=== PATIENT | male | born 1950 | race Caucasian/White ===

== ENCOUNTER 2018-09-09 13:36 | Emergency (ER) | payer MEDICARE ==
--- NOTE | 2018-09-09 14:16 | ED ---
Complex/Multi-Sys Presentation - HPI Summary HPI Summary: This patient is a 68 year old male presenting to [facility] with a chief complaint of flu-like symptoms since last week. Patient states that he received the shingles vaccination 3 weeks ago and experienced the same symptoms soon after. Patient then recovered and was generally asymptomatic until last week, when the symptoms reappeared. Patient complains of general myalgia, diaphoresis, cough, headache, and stomach cramps. The pain is rated 4/10 in severity. Symptoms aggravated by nothing. Symptoms alleviated by nothing. - History Of Current Complaint Chief Complaint: EDFluSymptoms Time Seen by Provider: 09/09/18 14:00 Hx Obtained From: Patient Onset/Duration: Lasting Weeks, Still Present Timing: Constant Severity Currently: Moderate Aggravating Factor(s): Nothing Alleviating Factor(s): Nothing Associated Signs And Symptoms: Positive: Other - myalgia, diaphoresis, cough, headache, stomach cramps - Allergies/Home Medications Allergies/Adverse Reactions: Allergies Allergy/AdvReac Type Severity Reaction Status Date / Time No Known Allergies Allergy Verified 09/09/18 13:46 PMH/Surg Hx/FS Hx/Imm Hx Previously Healthy: No Endocrine/Hematology History: Denies: Hx Diabetes Cardiovascular History: Reports: Hx Hypertension - TREATED W/ MEDS Denies: Hx Pacemaker/ICD History: Denies: Hx Renal Disease Sensory History: Denies: Hx Hearing Aid Psychiatric History: Denies: Hx Panic Disorder - Surgical History Surgery Procedure, Year, and Place: bilateral knee arthroscopy Infectious Disease History: No Infectious Disease History: Denies: Traveled Outside the [place] in Last 30 Days - Family History Known Family History: Positive: Hypertension - Social History Lives: With Family Alcohol Use: None Hx Substance Use: No Substance Use Type: Reports: None Hx Tobacco Use: No Smoking Status (MU): Never Smoked Tobacco Review of Systems Positive: Skin Diaphoresis. Negative: Fever Positive: Cough Positive: Abdominal Pain Positive: Myalgia Positive: Headache All Other Systems Reviewed And Are Negative: Yes Physical Exam - Summary Physical Exam Summary: Appearance: The patient is well-nourished in no acute distress and in no acute pain. Skin: Diaphoretic HEENT: The head is normocephalic and atraumatic. The pupils are equal and reactive. The conjunctivae are clear and without drainage. Nares are patent and without drainage. Mouth reveals moist mucous membranes. Posterior pharynx is erythematous.The external ears are intact. The ear canals are patent and without drainage. The tympanic membranes are intact. Neck: The neck is supple with full range of motion and non-tender. There are no carotid bruits. There is no neck vein distension. Respiratory: Chest is non-tender. Crackles in the right bases Cardiovascular: Heart is regular rate and rhythm. There is no murmur or rub auscultated. There is no peripheral edema and pulses are symmetrical and equal. Abdomen: The abdomen is soft and non-tender. There are normal bowel sounds heard in all four quadrants and there is no organomegaly palpated. Musculoskeletal: There is no back tenderness noted. Extremities are non-tender with full range of motion. There is good capillary refill. There is no peripheral edema or calf tenderness elicited. Neurological: Patient is alert and oriented to person, place and time. The patient has symmetrical motor strength in all four extremities. Cranial nerves are grossly intact. Deep tendon reflexes are symmetrical and equal in all four extremities. Psychiatric: The patient has an appropriate affect and does not exhibit any anxiety or depression. Triage Information Reviewed: Yes Vital Signs On Initial Exam: Initial Vitals Temp Pulse Resp BP Pulse Ox 99.0 F 97 16 137/84 93 09/09/18 13:41 09/09/18 13:41 09/09/18 13:41 09/09/18 13:41 09/09/18 13:41 Vital Signs Reviewed: Yes Diagnostics - Vital Signs Vital Signs Temp Pulse Resp BP Pulse Ox 09/09/18 13:41 99.0 F 97 16 137/84 93 - Laboratory Result Diagrams: 09/09/18 14:23 09/09/18 14:23 Lab Statement: Any lab studies that have been ordered have been reviewed, and results considered in the medical decision making process. - Radiology CXR Radiology Interpretation Completed By: Radiologist Summary of Radiographic Findings: CXR reveals, per radiologist, IMPRESSION: No radiographic evidence of acute cardiopulmonary disease. ED physician has reviewed this radiology report. Complex Multi-Symp Course/Dx Course Of Treatment: Mr. Alicea comes in complaining of flulike symptoms for about a week. He's been having myalgias and arthralgias and cough and congestion. He had a vaccine 3 weeks ago and is attributing his symptoms to that. After the vaccine he briefly felt ill for a few days and then felt better for a week or 2. He was nontoxic in appearance with stable vital signs here and his labs were all within normal limits as was chest x-ray. I think this is likely a viral syndrome I sent off a Lyme titer and I recommended follow -up with his PCP. He did have labs drawn on Monday at his PCP and I do not have access to those. - Diagnoses Provider Diagnoses: Viral syndrome Discharge - Sign-Out/Discharge Documenting (check all that apply): Patient Departure Patient Received Moderate/Deep Sedation with Procedure: No - Discharge Plan Condition: Stable Disposition: HOME Patient Education Materials: Viral Syndrome (ED) Referrals: Tor Magaña MD [Primary Care Provider] - 3 Days Additional Instructions: Return to the ED for any new or worsening symptoms. - Billing Disposition and Condition Condition: STABLE Disposition: Home - Attestation Statements Document Initiated by Enrique: Yes Documenting Scribe: Shaye Haney Provider For Whom Enrique is Documenting (Include Credential): Gadiel Santillan MD Scribe Attestation: Shaye Forte, scribed for Gadiel Santillan MD on 09/10/18 at 0815. Scribe Documentation Reviewed: Yes Provider Attestation: The documentation as recorded by the Shaye larson accurately reflects the service I personally performed and the decisions made by me, Gadiel Santillan MD Status of Scribe Document: Viewed
--- OUTSIDE RECORDS SUMMARY | 2018-09-09 14:22 | XMS REPORT | Continuity of Care Document ---
:1950 External Reference #:[id number] Author Name Bianca Fuller NP Address [address] [place] [address] Care Team Providers Name Role Phone Tor Magaña MD Care Team Information Metal Sander Unavailable Tor Magaña MD Primary Care Physician Unavailable Payers Date Identification Numbers Payment Provider Subscriber Effective: 2017 Policy Number: [id number] Medicare Blue Ppo Warner Morocho PayID: [id number] [address] [place] [id number] Advance Directives Description No Information Available Problems Active Problems Provider Date Asthma without status asthmaticus Tor Magaña M.D. Onset: 05/24/2018 Mixed hyperlipidemia Tor Magaña M.D. Onset: 05/24/2018 Allergic rhinitis Tor Magaña M.D. Onset: 02/18/2016 Plantar fascial fibromatosis Tor Magaña M.D. Onset: 07/30/2015 Essential hypertension Tor Magaña M.D. Onset: 07/30/2015 Benign neoplasm of colon Tor Magaña M.D. Onset: 12/04/2014 Benign prostatic hypertrophy without outflow Tor Magaña M.D. Onset: 09/2014 obstruction Benign essential hypertension Tor Magaña M.D. Onset: 12/04/2014 Hyperlipidemia Tor Magaña M.D. Onset: 12/04/2014 Family History Date Family Member(s) Observation Comments Father Aortic Valve Disorder Father Cerebrovascular Accident (CVA) Mother Diabetes Mellitus, II Social History Type Date Description Comments Sex Unknown Tobacco Use Start: Unknown Patient has never smoked Allergies, Adverse Reactions, Alerts Description No Known Drug Allergies Medications Active Medications SIG Qnty Indications Ordering Provider Date Ipratropium Goddard Instill 2 Sprays 15units J45.998 Tor Magaña, Into Each M.D. 0.06% Solution Nostril Three Times A Day Losartan Potassium take 1 tablet by 90tabs Tor Magaña, 12/07/2017 25mg mouth once daily M.D. Tablets Aspir-Low 1 by mouth every Unknown 81mg Tablets day Atorvastatin Calcium take 1 tablet by 90tabs Bianca C. mouth once daily PREETHI Fuller 10mg Tablets Tamsulosin HCL 1-2 by mouth 60caps Tor Magaña, 0.4mg every day as M.D. Capsules needed Flovent HFA 2 puffs inhaled Unknown 110mcg/Act twice daily Aerosol History Medications Omeprazole take one by mouth 30caps R05 Bianca C. 10/26/2017 - 20mg daily. PREETHI Fulelr 05/24/2018 Capsules Ipratropium Goddard 2 sprays each 15ml R05 Tor Magaña, 05/11/2017 - nostril three M.D. 10/26/2017 0.03% Solution times a day Physical Therapy treatment and M25.511 Tor Magaña, 05/11/2017 - evaluation right M.D. 05/23/2017 shoulder pain Valsartan take 1 tablet by 30tabs Tor Magaña, 01/26/2016 - 80mg mouth once daily M.D. 12/07/2017 Tablets Azelastine HCL 2 sprays each 90ml Tor Magaña, 08/20/2015 - (Nasal) nostril three M.D. 05/10/2017 0.1% times a day as Solution directed Fluticasone 2 sprays each 16units J30.89 Tor Magaña, 08/04/2015 - Propionate nostril every M.D. 02/18/2016 night at bedtime 50mcg/Act Suspension Dymista 1 spray per 23gm J30.89 Tor Magaña, 07/30/2015 - nostril two times M.D. 08/04/2015 137-50mcg/Act a day Suspension Omeprazole 1 by mouth every 30caps 784.91 Tor Magaña, 12/04/2014 - 40mg day in the M.D. 07/30/[address] js Jimenez 1 by mouth every 30tabs Tor Magaña, - 80mg Tablets day M.D. 01/26/2016 Immunizations CPT Code Status Date Vaccine Lot # [id number] Given 08/20/2018 Zoster (Shingles) Vaccine (HZV), Recombinant, Subunit, Adjuvanted [id number] Given 05/24/2018 Pneumococcal Conjugate Vacc-13 [id number] Given 02/14/2018 High-Dose, Influenza Virus Vacccine-fluzone 65 and older [id number] Given 02/18/2016 Influenza Vac, Quadrivalent, Slit Virus, Im [id number] Vital Signs Date Vital Result Comment 08/30/2018 4:53pm BP Systolic 116 mmHg BP Diastolic 70 mmHg Heart Rate 80 /min Body Temperature 97.7 F Respiratory Rate 16 /min Height 73.5 inches 6'1.50" 05/24/2018 1:22pm BP Systolic 136 mmHg BP Diastolic 78 mmHg Heart Rate 64 /min Body Temperature 97.4 F Respiratory Rate 17 /min Height 73.5 inches 6'1.50" Weight 233.25 lb BMI (Body Mass Index) 30.4 kg/m2 10/26/2017 2:53pm BP Systolic 112 mmHg BP Diastolic 72 mmHg Heart Rate 72 /min Body Temperature 97.7 F Respiratory Rate 16 /min Height 73.5 inches 6'1.50" Weight 232.38 lb BMI (Body Mass Index) 30.2 kg/m2 05/11/2017 2:41pm BP Systolic 108 mmHg BP Diastolic 66 mmHg Heart Rate 68 /min Body Temperature 98.2 F Respiratory Rate 16 /min Height 73.5 inches 6'1.50" Weight 231.00 lb BMI (Body Mass Index) 30.1 kg/m2 02/18/2016 6:06pm BP Systolic 110 mmHg BP Diastolic 70 mmHg Heart Rate 72 /min Body Temperature 96.6 F Respiratory Rate 16 /min Height 73.5 inches 6'1.50" Weight 229.00 lb BMI (Body Mass Index) 29.8 kg/m2 07/30/2015 5:18pm BP Systolic 112 mmHg BP Diastolic 74 mmHg Heart Rate 76 /min Body Temperature 97.7 F Respiratory Rate 16 /min Height 73.5 inches 6'1.50" Weight 228.38 lb BMI (Body Mass Index) 29.7 kg/m2 01/22/2015 5:51pm BP Systolic 130 mmHg BP Diastolic 80 mmHg Heart Rate 64 /min Body Temperature 97.1 F Respiratory Rate 16 /min Height 73.5 inches 6'1.50" Weight 230.00 lb BMI (Body Mass Index) 29.9 kg/m2 12/04/2014 2:53pm BP Systolic 110 mmHg BP Diastolic 72 mmHg Heart Rate 66 /min Body Temperature 98.0 F Respiratory Rate 17 /min Height 73.5 inches 6'1.50" Weight 227.25 lb BMI (Body Mass Index) 29.6 kg/m2 Results Test Date Facility Test Result H/L Range Note Laboratory test 07/14/2018 [facility] PSA Diagnostic 4.551 ng/mL High 0-4.0 1 finding CBC Electronic 05/24/2018 [facility] WBC 6.59 4.0-10.0 ([facility]) (607)- - RBC 4.92 3.93-6.0 Hemoglobin (Fma/CMC/CTX) 16.1 g/dL 12.0-17.0 Hematocrit (Fma/CMC/CTX) 46.8 % 35.0-50.0 Mean Corpuscular Vol 95.1 fL High 80-95 Mean Corpuscular Hemoglobin 32.7 pg High 25.6-32.2 Mean Corpuscular Hemo Concen 34.4 g/dL 32.2-36.0 Platelets 227 10^3/ul 163-400 RDW-CV 11.8 11.6-14.4 Mean Platelet Volume 9.3 fL 8.0-12.4 Absolute Neutrophils BLD 3.89 1.56-6.13 Absolute Lymphocytes 1.88 1.18-3.74 Absolute Monocytes BLD Auto 0.52 0.24-0.82 Absolute Eos Blood 0.20 0.04-0.54 Absolute Basophils 0.07 0.01-0.08 Neutrophil % 59.0 % 34.0-70.0 Lymph% 28.5 % 20.0-52.0 Monocytes % 7.9 % 5.0-12.0 Eos % 3.0 % 0.7-7.0 Basophil% 1.1 % 0-1.2 Comprehensive Metabolic 05/24/2018 [facility]) Sodium 141 mEq/L 134-149 Prof Potassium 4.1 mEq/L 3.6-5.5 Chloride 104 mEq/L 94-112 Carbon Dioxide 24 mEq/L 21-32 Glucose 89 mg/dL 70-105 BUN 22 mg/dL 6-26 Creatinine 1.0 mg/dL 0.6-1.4 BUN/Creat Ratio 22.0 CALC 8.0-36.0 Calcium 9.3 mg/dL 8.6-10.2 Total Protein 6.9 g/dL 6.4-8.3 Albumin 4.7 g/dL 3.8-5.5 Globulin 2.2 g/dL 2.0-4.8 A/G Ratio 2.1 CALC 0.6-2.3 Alk. Phosphatase 83 U/L 22-95 Alt (SGPT) 39 U/L High 7-35 Ast (Sgot) 26 U/L 5-34 Total Bilirubin 0.5 mg/dL 0.2-1.3 GFR Non- >60 ml/min/1.73m^ >=60 GFR >60 ml/min/1.73m^ >=60 Lipid Profile 05/24/2018 [facility]) Cholesterol 180 mg/dL 120- 200 Triglycerides 145 mg/dL 30-200 HDL Cholesterol 58 mg/dL 30-70 LDL (Calculated) 93 CALC 0-129 VLDL Cholesterol 29 mg/dL 0-50 HDL Risk Factor 3.1 CALC 0.0-4.4 Laboratory test 05/03/2018 [facility] PSA Diagnostic 8.398 High 0-4.0 2 finding ng/mL Laboratory test 12/06/2017 [facility] PSA Screening 5.346 High 0-4.0 3 finding ng/mL Laboratory test 06/24/2017 [facility]) PSA 6.4 ng/mL High 0.0- 4.0 4 finding Laboratory test 06/24/2017 [facility] HCV AB non-reacti non-reacti finding (607)- - ve ve Comprehensive 06/24/2017 [facility]) Sodium 142 mEq/L 134-149 Metabolic Prof Potassium 4.1 mEq/L 3.6-5.5 Chloride 106 mEq/L 94-112 Carbon Dioxide 23 mEq/L 21-32 Glucose 95 mg/dL 70-105 BUN 15 mg/dL 6-26 Creatinine 1.0 mg/dL 0.6-1.4 BUN/Creat Ratio 15.0 CALC 8.0-36.0 Calcium 9.0 mg/dL 8.6-10.2 Total Protein 6.6 g/dL 6.4-8.3 Albumin 4.3 g/dL 3.8-5.5 Globulin 2.3 g/dL 2.0-4.8 A/G Ratio 1.9 CALC 0.6-2.3 Alk. Phosphatase 64 U/L 22-95 Alt (SGPT) 38 U/L High 7-35 5 Ast (Sgot) 31 U/L 5-34 Total Bilirubin 0.6 mg/dL 0.2-1.3 GFR Non- >60 ml/min/1.73m^ >=60 GFR >60 ml/min/1.73m^ >=60 Lipid Profile 06/24/2017 [facility]) Cholesterol 166 mg/dL 120- 200 Triglycerides 70 mg/dL 30-200 HDL Cholesterol 55 mg/dL 30-70 LDL (Calculated) 97 CALC 0-129 VLDL Cholesterol 14 mg/dL 0-50 HDL Risk Factor 3.0 CALC 0.0-4.4 Laboratory test 04/20/2017 [facility] Surgical SEE RESULT 6 finding Interface Order BELOW Comprehensive 12/17/2016 [facility]) Sodium 146 mEq/L 134-14 Metabolic Prof 9 Potassium 4.7 mEq/L 3.6-5.5 Chloride 108 mEq/L 94-112 Carbon Dioxide 24 mEq/L 21-32 Glucose 104 mg/dL 70-105 BUN 22 mg/dL 6-26 Creatinine 1.0 mg/dL 0.6-1.4 BUN/Creat Ratio 22.0 CALC 8.0-36.0 Calcium 9.7 mg/dL 8.6-10.2 Total Protein 7.0 g/dL 6.4-8.3 Albumin 4.5 g/dL 3.8-5.5 Globulin 2.5 g/dL 2.0-4.8 A/G Ratio 1.8 CALC 0.6-2.3 Alk. Phosphatase 81 U/L 22-95 Alt (SGPT) 37 U/L High 7-35 Ast (Sgot) 32 U/L 5-34 Total Bilirubin 1.2 mg/dL 0.2-1.3 GFR Non- >60 ml/min/1.73m^ >=60 GFR >60 ml/min/1.73m^ >=60 Lipid Profile 12/17/2016 [facility]) Cholesterol 185 mg/dL 120- 200 Triglycerides 74 mg/dL 30-200 HDL Cholesterol 67 mg/dL 30-70 LDL (Calculated) 103 CALC 0-129 VLDL Cholesterol 15 mg/dL 0-50 HDL Risk Factor 2.8 CALC 0.0-4.4 Lyme AB/Western 11/03/2016 [facility] Lyme IgG/IgM <0.91 ISR 0.00-0.90 7, 8 Blot Reflex [address] [facility] [place] [address] (606)- - Lyme Disease Ab, Quant, IgM <0.80 index 0.00-0.79 9 Ehrlichiosis Panel 11/03/2016 [facility] E. chaffeensis Negative Neg:<1:64 [address] [facility] ([facility] [place] [address] (608)- - E. chaffeensis ([facility]) IgM Titer Negative Neg:<1:20 10 Hge IgG Titer Negative Neg:<1:64 11 Hge IgM Titer Negative Neg:<1:20 12 Laboratory test 11/03/2016 [facility]) PSA 4.6 ng/mL High 0.0- 4.0 13 finding Laboratory test 08/12/2016 [facility]) PSA 6.3 ng/mL High 0.0- 4.0 14 finding Comprehensive 08/12/2016 [facility]) Sodium 137 mEq/L 134-149 Metabolic Prof Potassium 4.5 mEq/L 3.6-5.5 Chloride 103 mEq/L 94-112 Carbon Dioxide 25 mEq/L 21-32 Glucose 105 mg/dL 70-105 BUN 26 mg/dL 6-26 Creatinine 1.2 mg/dL 0.6-1.4 BUN/Creat Ratio 21.7 CALC 8.0-36.0 Calcium 8.9 mg/dL 8.6-10.2 Total Protein 6.5 g/dL 6.4-8.3 Albumin 4.1 g/dL 3.8-5.5 Globulin 2.4 g/dL 2.0-4.8 A/G Ratio 1.7 CALC 0.6-2.3 Alk. Phosphatase 64 U/L 22-95 Alt (SGPT) 44 U/L High 7-35 15 Ast (Sgot) 32 U/L 5-34 Total Bilirubin 0.9 mg/dL 0.2-1.3 GFR Non- >60 ml/min/1.73m^ >=60 GFR >60 ml/min/1.73m^ >=60 Lipid Profile 02/20/2016 [facility](a) Cholesterol 184 mg/dL 120- 200 Triglycerides 88 mg/dL 30-200 HDL Cholesterol 60 mg/dL 30-70 LDL (Calculated) 106 CALC 0-129 VLDL Cholesterol 18 mg/dL 0-50 HDL Risk Factor 3.1 CALC 0.0-4.4 CBC Electronic (a) 02/20/2016 [facility] WBC 6.9 3.6-9.6 (607)- - RBC 5.02 3.90-5.70 Hemoglobin (Fma/CMC/CTX) 16.6 g/dL 12.1 - 17.2 Hematocrit (Fma/CMC/CTX) 48.3 % 36.1 - 50.3 Platelets 229 10^3/ul 150-400 Lymph% 30.3 % 17.0-48.0 Mixed% 7.7 Neutrophils % 62.0 Mean Corpuscular Vol 96 82.2-97.4 Mean Corpuscular Hemoglobin 33.1 27.6-33.3 Mean Corpuscular Hemo Concen 34.5 32.0-36.0 RDW 12.9 11.6-13.7 Mean Platelet Volume 7.2 5.5-11.0 Laboratory test 02/20/2016 [facility](a) TSH 2.10 mIU/L 0.50-6.00 16 finding Comprehensive 02/20/2016 [facility](a) Sodium 141 mEq/L 134-149 Metabolic Prof Potassium 4.8 mEq/L 3.6-5.5 Chloride 104 mEq/L 94-112 Carbon Dioxide 25 mEq/L 21-32 Glucose 90 mg/dL 70-105 BUN 20 mg/dL 6-26 Creatinine 1.1 mg/dL 0.6-1.4 BUN/Creat Ratio 18.2 CALC 8.0-36.0 Calcium 9.0 mg/dL 8.6-10.2 Total Protein 6.8 g/dL 6.4-8.3 Albumin 4.3 g/dL 3.8-5.5 Globulin 2.5 g/dL 2.0-4.8 A/G Ratio 1.7 CALC 0.6-2.3 Alk. Phosphatase 67 U/L 22-95 Alt (SGPT) 43 U/L High 7-35 Ast (Sgot) 36 U/L High 5-34 Total Bilirubin 0.6 mg/dL 0.2-1.3 GFR Non- >60 ml/min/1.73m^ >=60 GFR >60 ml/min/1.73m^ >=60 Laboratory test 07/30/2015 [facility](a) PSA 4.2 ng/mL High 0.0- 4.0 17 finding Lipid Profile 07/30/2015 [facility]ma) Cholesterol 175 mg/dL 120- 200 Triglycerides 190 mg/dL 30-200 HDL Cholesterol 49 mg/dL 30-70 LDL (Calculated) 88 CALC 0-129 VLDL Cholesterol 38 mg/dL 0-50 HDL Risk Factor 3.6 CALC 0.0-4.4 Comprehensive Metabolic 07/30/2015 [facility]ma) Sodium 144 mEq/L 134-149 Prof Potassium 4.1 mEq/L 3.6-5.5 Chloride 108 mEq/L 94-112 Carbon Dioxide 21 mEq/L 21-32 Glucose 84 mg/dL 70-105 BUN 25 mg/dL 6-26 Creatinine 1.1 mg/dL 0.6-1.4 BUN/Creat Ratio 22.7 CALC 8.0-36.0 Calcium 9.5 mg/dL 8.6-10.2 Total Protein 6.5 g/dL 6.4-8.3 Albumin 4.1 g/dL 3.8-5.5 Globulin 2.4 g/dL 2.0-4.8 A/G Ratio 1.7 CALC 0.6-2.3 Alk. Phosphatase 60 U/L 22-95 Alt (SGPT) 39 U/L High 7-35 18 Ast (Sgot) 30 U/L 5-34 Total Bilirubin 0.3 mg/dL 0.2-1.3 GFR Non- >60 ml/min/1.73m^ >=60 GFR >60 ml/min/1.73m^ >=60 Ict Hemoccult (Fma) 12/25/2014 [facility] Ict Hemoccult (1) neg (607)- - Ict Hemoccult-(2) neg 12/21/14 Ict-Hemoccult (3) neg 12/22/14 Lipid Profile 12/20/2014 [facility]) Cholesterol 155 mg/dL 120- 200 Triglycerides 135 mg/dL 30-200 HDL Cholesterol 55 mg/dL 30-70 LDL (Calculated) 73 CALC 0-129 VLDL Cholesterol 27 mg/dL 0-50 HDL Risk Factor 2.8 CALC 0.0-4.4 Comprehensive Metabolic 12/20/2014 [facility]) Sodium 140 mEq/L 134-149 Prof Potassium 4.6 mEq/L 3.6-5.5 Chloride 102 mEq/L 94-112 Carbon Dioxide 27 mEq/L 21-32 Glucose 100 mg/dL 70-105 BUN 16 mg/dL 6-26 Creatinine 1.0 mg/dL 0.6-1.4 BUN/Creat Ratio 16.0 CALC 8.0-36.0 Calcium 9.4 mg/dL 8.6-10.2 Total Protein 6.9 g/dL 6.4-8.3 Albumin 4.5 g/dL 3.8-5.5 Globulin 2.4 g/dL 2.0-4.8 A/G Ratio 1.9 CALC 0.6-2.3 Alk. Phosphatase 58 U/L 22-95 Alt (SGPT) 48 U/L High 7-35 19 Ast (Sgot) 31 U/L 5-34 Total Bilirubin 0.7 mg/dL 0.2-1.3 GFR Non- >60 ml/min/1.73m^ >=60 GFR >60 ml/min/1.73m^ >=60 Laboratory test finding 12/20/2014 [facility]) TSH 2.38 mIU/L 0.50-6.00 20 PSA 4.4 ng/mL High 0.0-4.0 21 CBC Electronic (Fma) 12/20/2014 [facility] WBC 6.0 3.6-9.6 (607)- - RBC 5.14 3.90-5.70 Hemoglobin (Fma/CMC/CTX) 16.4 g/dL 12.1 - 17.2 Hematocrit (Fma/CMC/CTX) 48.7 % 36.1 - 50.3 Platelets 256 10^3/ul 150-400 Lymph% 32.0 % 17.0-48.0 Mixed% 7.3 Neutrophils % 60.7 Mean Corpuscular Vol 95 82.2-97.4 Mean Corpuscular Hemoglobin 31.9 27.6-33.3 Mean Corpuscular Hemo Concen 33.6 32.0-36.0 RDW 13.1 11.6-13.7 Mean Platelet Volume 6.7 5.5-11.0 1 Serum levels of PSA measured using the Ibercheck DXI Hybritech immunoassay should not be interpreted as absolute evidence of the presence or absence of disease. The PSA value should be used in conjunction with other pertinent clinical diagnostic procedures. The values obtained with different assay methods or kits cannot be used interchangeably. 2 Serum levels of PSA measured using the Ibercheck DXI Hybritech immunoassay should not be interpreted as absolute evidence of the presence or absence of disease. The PSA value should be used in conjunction with other pertinent clinical diagnostic procedures. The values obtained with different assay methods or kits cannot be used interchangeably. 3 Serum levels of PSA measured using the Ibercheck DXI Hybritech immunoassay should not be interpreted as absolute evidence of the presence or absence of disease. The PSA value should be used in conjunction with other pertinent clinical diagnostic procedures. The values obtained with different assay methods or kits cannot be used interchangeably. 4 RESULTS VERIFIED BY REPEAT ANALYSIS 5 consistent w/ previous results 6 SEE RESULT BELOW Name: STALIN MOROCHODARNELL Givens : [address]: Miguel Melendez MD Acct: [id number] Unit: [id number] AGE: 66 Location: ENDO Re04/20/17 SEX: M Status: REG REF SPEC: [id number] VANESSA: 04/20/17- SUBM DR: Miguel Melendez MD REQ: [id number] RECD: 04/20/17 STATUS: COY LEE DR: Tor Magaña MD _ ORDERED: LEVEL 4 FINAL DIAGNOSIS Colon, cecum, biopsy: -- Tubular adenoma. -- No high grade dysplasia or malignancy. CLINICAL HISTORY Screening, increased risk ? history of adenomatous polyps in past POST-OPERATIVE DIAGNOSIS Colonoscopy to terminal ileum ? cecal polyp biopsied; tics; 5-10 years GROSS DESCRIPTION The specimen is received in formalin labeled, Biopsy Cecal Polyp, and consists of a 0.5 x 0.2 x 0.1 cm shin-pink irregular soft tissue fragment which is submitted entirely in one cassette. Signed (signature on file) Brandi Regalado MD 1102 END OF REPORT * ML=Testing performed at Main Lab DEPARTMENT OF PATHOLOGY, [address] [place] [address] Warner Graves M.D. Director [facility] # [id number] 7 1 sst 8 Negative <0.91 Equivocal 0.91 - 1.09 Positive >1.09 9 Negative <0.80 Equivocal 0.80 - 1.19 Positive >1.19 IgM levels may peak at 3-6 weeks post infection, then gradually decline. 10 IgG titers if 1:64 or greater indicate exposure or acute and convalescent samples showing a four-fold increase, and/or the presence of IgM indicate recent or current infection. 11 HGE IgG levels are detectable 7 to 10 days post infection and persist approximately one year. 12 Due to a reagent backorder, this test was performed using a different assay. The reference interval for this alternate assay is: Negative <1:64 Positive 1:64 or greater IgM levels usually rise 3 to 5 days post infection and fall to normal levels in approximately 30 to 60 days. 13 RESULTS VERIFIED BY REPEAT ANALYSIS 14 RESULTS VERIFIED BY REPEAT ANALYSIS 15 consistent w/ previous results 16 FASTING 17 consistent w/ previous results 18 consistent w/ previous results 19 RESULTS VERIFIED BY REPEAT ANALYSIS 20 FASTING 21 RESULTS VERIFIED BY REPEAT ANALYSIS Procedures Date Code Description Status 06/13/2018 [id number] Mammogram Completed 05/24/2018 18249 Electrocardiogram Complete Completed 04/20/2017 [id number] Colonoscopy Completed Encounters Type Date Location Provider Dx Diagnosis Office Visit 10/26/2017 Main Office Bianca Fuller, R05 Cough 2:45p [employer]GR[employer]HER Office Visit 05/11/2017 Main Office Tor Magaña, Z00.01 Encounter for 2:50p [facility] exam w abnormal findings N40.0 Benign prostatic hyperplasia without lower urinry tract symp I10 Essential (primary) hypertension E78.4 Other hyperlipidemia R05 Cough M25.511 Pain in right shoulder Office Visit 02/18/2016 6:10p Main Office Tor Perez E78.4 Other hyperlipidemia Elmer Magaña I10 Essential (primary) hypertension N40.0 Benign prostatic hyperplasia without lower urinry tract symp J30.89 Other allergic rhinitis Z23 Encounter for immunization Z23 Encounter for immunization Office Visit 07/30/2015 5:30p Main Office Tor Perez E78.4 Other hyperlipidemia Elmer Magaña I10 Essential (primary) hypertension N40.0 Enlarged prostate without lower urinary tract symptoms M72.2 Plantar fascial fibromatosis J30.89 Other allergic rhinitis Office Visit 01/22/2015 5:50p Main Office Tor Magaña, 729.99 Other Disorders Of M.D. Soft Tissue 272.4 Hyperlipidemia Other Unspec 401.1 Hypertension Benign 600.90 Hyperplasia Of Prostate,Unspecified W/O Urinary Obstruction Office Visit 12/04/2014 2:50p Main Office Tor Magaña, V70.0 Examination General M.D. Medical Routine AT [facility] Care [facility] 272.4 Hyperlipidemia Other Unspec 401.1 Hypertension Benign 600.90 Hyperplasia Of Prostate,Unspecified W/O Urinary Obstruction 211.3 Polyp Colon 729.99 Other Disorders Of Soft Tissue 784.91 Postnasal Drip Plan of Treatment 08/30/2018 - Bianca Fuller, NPT50.Z95A Adverse effect of other vaccines and biological substances, initial encounterComments:I believe your symptoms are from the vaccine, and I agree with you not getting the second round. If you are not fully resolved/normal after 3 days, please let me know and I will put in labwork for you.AllComments:1. Patient has been queried about patient's goals/ preferences and functional/lifestyle goals at relevant visits. If relevant, describe: Has been discussed, noted above2. Treatment goals as explainedto the patient: see above3. Are there barriers to meeting treatment goals? Yes If Yes, please describe: Barriers include possible insurance limits, disease process, and difficulty with lifestyle changes4. Self-Management goals as described to the patient: Yes, see above As always, we strongly encourage a healthy diet and making physical activity a part of your every day life. If you have questions about how or where to start, please contact the office.
[2018-09-09 14:41] LABS: Hematocrit 41 % (42-52); Hemoglobin 14.1 g/dL (14.0-18.0); Mean Corpuscular HGB Conc 34 g/dL (31-36); Mean Corpuscular Hemoglobin 31 pg (27-31); Mean Corpuscular Volume 91 fL (80-94); Mean Platelet Volume 8.3 fL (7.4-10.4); Platelet Count 144 10^3/uL (150-450); Red Blood Count 4.55 10^6 /uL (4.18-5.48); Red Cell Distribution Width 12 % (10.5-15); White Blood Count 5.1 10^3/uL (3.5-10.8)
[2018-09-09 14:48] LABS: Influenza A Molecular NEGATIVE (Negative); Influenza B Molecular NEGATIVE (Negative)
[2018-09-09 14:54] LABS: Albumin 3.7 g/dL (3.2-5.2); Albumin/Globulin Ratio 1.3 (1-3); Calcium 8.7 mg/dL (8.6-10.3); Globulin 2.8 g/dL (2-4); Potassium 3.6 mmol/L (3.5-5.0); Total Protein 6.5 g/dL (6.4-8.9)
[2018-09-09 15:26] LABS: ABS Lymphocytes 0.8 10^3/ul (1.0-4.8); ABS Monocytes 0.6 10^3/ul (0-0.8); ABS Neutrophils 3.7 10^3/ul (1.5-7.7); Eosinophil % 0.1 %; Lymphocyte % 15.8 %; Nucleated Red Blood Cells % 0.2
[2018-09-09 16:07] LABS: EGFR African American 98.4 (>60); EGFR Non-African American 81.3 (>60)
[2018-09-09 17:27] VITALS: BP 125/74
== END 2018-09-09 17:27 | disposition home or self-care (01) ==
LOC: ED 13:36
DX: B34.9 Viral infection, unspecified (principal); R05 Cough; R10.9 Unspecified abdominal pain; M79.10 Myalgia, unspecified site; R51 Headache; R61 Generalized hyperhidrosis; I10 Essential (primary) hypertension
CPT/HCPCS: 36415; 71046; 80053; 83605; 85025; 86618; 87040; 99282